=== PATIENT | male | born 1990 | race Two or more races ===

== ENCOUNTER → 2020-03-01 | Outpatient (CLI) | payer BC | END | disposition home or self-care (01) | LOC: PETCFH 08:31 | PROVIDERS: ATTEND Pathology Hematology | DX: N13.30 Unspecified hydronephrosis (principal); D48.3 Neoplasm of uncertain behavior of retroperitoneum; N28.89 Other specified disorders of kidney and ureter | CPT/HCPCS: 78815; A9552 ==

== ENCOUNTER 2020-03-20 10:44 | Outpatient (CLI) | payer BC | END 2020-03-20 23:59 | disposition home or self-care (01) | LOC: CARD 10:44 | PROVIDERS: ATTEND Pathology Hematology | DX: J44.9 Chronic obstructive pulmonary disease, unspecified (principal); C62.00 Malignant neoplasm of unspecified undescended testis; D40.12 Neoplasm of uncertain behavior of left testis; D48.3 Neoplasm of uncertain behavior of retroperitoneum | CPT/HCPCS: 94010; 94726; 94729 ==